=== PATIENT | female | born 1970 | race Caucasian/White ===

== ENCOUNTER 2020-11-18 13:38 | Outpatient (CLI) | payer OTHER, SELFPAY ==
--- NOTE | ~2020-11-18 | US_ITS ---
EXAMINATION: US renal BI EXAM DATE: 11/18/2020 14:25 INDICATION: 7 MM renal cortical lesion noted CT, disorder kidney/ureter. TECHNIQUE: Multiple grayscale and Doppler images of the kidneys were obtained (by a technologist who performed the scan) and subsequently reviewed. There is no prior study for comparison. FINDINGS: Right kidney: There is normal contour and echogenicity. It measures 10.9 x 4.2 x 4.9 centimeters. T here are no focal renal lesions identified. There is no hydronephrosis. Left kidney: There is normal contour and echogenicity. It measures 10.6 x 4.7 x 4.9 centimeters. Foc al anechoic region measured at the corticomedullary junction, probably a cyst. Uncertain whether or n ot this is the CT finding. There is no hydronephrosis. Bladder unremarkable. IMPRESSION: Probable small left renal cyst. Uncertain whether or not this is the CT finding. Reviewed, dictated and finalized at location B. IMPRESSION: Probable small left renal cyst. Uncertain whether or not this is th e CT finding.
== END 2020-11-18 13:39 | disposition home or self-care (01) ==
LOC: ANHIMG 13:43
PROVIDERS: PCP Family Medicine; Visit Provider Nurse Practitioner
DX: N28.9 Disorder of kidney and ureter, unspecified (principal)
CPT/HCPCS: 76775